=== PATIENT | female | born 1975 | race Hispanic/Latino ===

== ENCOUNTER 2019-01-15 04:33 | Emergency (ER) | payer MEDICAID ==
[2019-01-15 06:47] LABS: ALBUMIN 3.6 g/dL (3.5-5.0); BILIRUBIN,TOTAL 0.3 mg/dL (0.2-1.0); CREATININE 0.8 mg/dL (0.5-1.5); POTASSIUM 3.8 mmol/L (3.5-5.1); TOTAL PROTEIN, SERUM 7.1 g/dL (6.0-8.3)
[2019-01-15 06:48] LABS: B-TYPE NATRIURETIC PEPTIDE 7 pg/mL (0-100)
[2019-01-15 06:53] LABS: INR 0.95 (0.85-1.15)
[2019-01-15 06:58] LABS: BASOPHILS % (AUTO) 0.8 % (0.0-5.0); EOSINOPHILS % (AUTO) 1.5 % (0.0-8.0); HEMATOCRIT 37.1 % (36-48); LYMPHOCYTES % (AUTO) 32.8 % (21.0-51.0); MEAN CORPUSCULAR HEMOGLOBIN 24.4 pg (27.0-33.0); MEAN CORPUSCULAR VOLUME 73.9 fL (79-99); NEUTROPHILS % (AUTO) 54.9 % (40.0-77.0); PLATELET COUNT (AUTO) 220 K/uL (130-400); RED BLOOD CELL COUNT(AUTO) 5.03 MIL/uL (4.00-5.50); RED CELL DISTRIBUTION WIDTH 15.7 % (11.0-15.5); WHITE BLOOD COUNT (AUTO) 10.5 K/uL (4.8-10.8)
== END 2019-01-15 06:57 | disposition home or self-care (01) ==
LOC: EDH 04:33
DX: R07.89 Other chest pain (principal); M62.830 Muscle spasm of back; M54.6 Pain in thoracic spine; I10 Essential (primary) hypertension; F41.9 Anxiety disorder, unspecified
CPT/HCPCS: 36415; 71045; 80053; 83690; 83880; 84484; 85025; 85610; 85730; 93005

== ENCOUNTER 2019-02-08 07:31 | Inpatient (IN) | payer MEDICAID, OTHER ==
[~2019-02-08] VITALS: Ht 162.6 cm; Wt 74.8 kg
[2019-02-08] MEDS ORDERED: ONDANSETRON HCL 4 MG/2 ML VIAL ONE (08:00)
[2019-02-08] MEDS ORDERED: KETOROLAC TROMETHAMINE 30MG/ML ONE (08:00)
[2019-02-08 08:06] LABS: BASOPHILS % (AUTO) 0.7 % (0.0-5.0); EOSINOPHILS % (AUTO) 0.8 % (0.0-8.0); HEMATOCRIT 35.5 % (36-48); MEAN CORPUSCULAR HEMOGLOBIN 23.8 pg (27.0-33.0); MEAN CORPUSCULAR HGB CONC 32.6 g/dL (32.0-36.0); MONOCYTES % (AUTO) 8.7 % (3.0-13.0); NEUTROPHILS % (AUTO) 67.8 % (40.0-77.0); NUCLEATED RED BLOOD CELLS 0.1 % (0.0-0.19); PLATELET COUNT (AUTO) 215 K/uL (130-400); RED BLOOD CELL COUNT(AUTO) 4.87 MIL/uL (4.00-5.50); RED CELL DISTRIBUTION WIDTH 15.9 % (11.0-15.5); WHITE BLOOD COUNT (AUTO) 13.4 K/uL (4.8-10.8)
[2019-02-08 08:51] LABS: CREATININE 0.8 mg/dL (0.5-1.5); POTASSIUM 3.6 mmol/L (3.5-5.1)
[2019-02-08 08:53] LABS: ALBUMIN 3.5 g/dL (3.5-5.0); BILIRUBIN,TOTAL 0.2 mg/dL (0.2-1.0); TOTAL PROTEIN, SERUM 7.3 g/dL (6.0-8.3)
[2019-02-08] MEDS ORDERED: ZOSYN 3.375GM+NS 50ML 50 ML IV ONE (10:35)
[2019-02-08 10:44] LABS: APPEARANCE,URINE Cloudy (CLEAR); BILIRUBIN,URINE Negative (NEGATIVE); COLOR,URINE Yellow (YELLOW); GLUCOSE, URINE (UA) Negative (NEGATIVE); KETONES,URINE Negative (NEGATIVE); LEUKOCYTE ESTERASE ,URINE Negative (NEGATIVE); NITRATE,URINE Negative (NEGATIVE); OCCULT BLOOD,URINE Nonhemolyzed Trace (NEGATIVE); PROTEIN,URINE Negative (NEGATIVE)
[2019-02-08 10:48] LABS: HCG,QUAL RESULT NEGATIVE (NEGATIVE)
[2019-02-08 11:06] LABS: BACTERIA,URINE Few /HPF (None Seen); WBC,URINE 0-1 /HPF (0-1)
[2019-02-08 11:07] LABS: MUCUS,URINE Few LPF (None Seen); SQUAMOUS EPITHELIAL CELL,UR Moderate /HPF (0-2)
[2019-02-08] MEDS ORDERED: MEPERIDINE-PF 25 MG/ML SYG ONE (13:19)
[2019-02-08] MEDS ORDERED: ENOXAPARIN SODIUM 40 MG/0.4 ML SYRINGE SQ SCH (14:45)
[2019-02-08] MEDS ORDERED: PHARMACY COMMUNICATION MISC SCH (14:45)
[2019-02-08] MEDS ORDERED: ACETAMINOPHEN 325 MG TAB PO PRN ×2 (14:45)
[2019-02-08] MEDS ORDERED: ONDANSETRON HCL 4 MG/2 ML VIAL IVP PRN (14:45)
[2019-02-08 18:50] VITALS: BP 130/83
[2019-02-08 19:05] VITALS: BP 132/85
[2019-02-08] MEDS ORDERED: LOSA100T58 PO (19:23)
[2019-02-08] MEDS: FAMOTIDINE 20MG TAB 20 MG TAB PO SCH (20:27)
[2019-02-08] MEDS: DEXTROSE 5 %-0.45 % NACL 1,000 ML IV SCH (21:51)
[2019-02-08 23:05] VITALS: BP 132/92
[2019-02-08] MEDS: MEPERIDINE-PF 25 MG/ML SYG IV PRN (23:12)
[2019-02-08] MEDS: KETOROLAC TROMETHAMINE 30MG/ML IV PRN (23:59)
[2019-02-09 03:15] VITALS: BP 141/90
[2019-02-09] MEDS: MEPERIDINE-PF 25 MG/ML SYG IV PRN ×3 (05:45→21:25)
[2019-02-09 07:24] VITALS: BP 154/99
[2019-02-09 08:22] LABS: HEMATOCRIT 34.7 % (36-48); MEAN CORPUSCULAR HEMOGLOBIN 24.3 pg (27.0-33.0); MEAN CORPUSCULAR VOLUME 73.6 fL (79-99); NUCLEATED RED BLOOD CELLS 0.1 % (0.0-0.19); PLATELET COUNT (AUTO) 221 K/uL (130-400); RED BLOOD CELL COUNT(AUTO) 4.72 MIL/uL (4.00-5.50); WHITE BLOOD COUNT (AUTO) 6.7 K/uL (4.8-10.8)
[2019-02-09 08:32] LABS: CREATININE 0.8 mg/dL (0.5-1.5); POTASSIUM 3.6 mmol/L (3.5-5.1)
[2019-02-09 08:33] LABS: INR 0.98 (0.85-1.15); PARTIAL THROMBOPLASTIN TIME 25.5 SEC (26.3-35.5); PROTHROMBIN TIME 10.3 SEC (9.6-11.6)
[2019-02-09] MEDS: FAMOTIDINE 20MG TAB 20 MG TAB PO SCH (09:00)
[2019-02-09 11:24] VITALS: BP 153/92
--- NOTE | 2019-02-09 13:59 | NUR ---
Rec'd call from Dr. Cabral to clarify if new surgical consult is necessary. Rec'd orders for EGD now if pt NPO and no lovenox given. Upon entering room to get consent, pt stated she had taken "a sip" of water 1 hour ago. Reported to GI lab staff who will clarify what time EGD to be done.
[2019-02-09] MEDS: DEXTROSE 5 %-0.45 % NACL 1,000 ML IV SCH ×3 (14:45→20:34)
[2019-02-09 16:20] VITALS: BP 149/88
--- NOTE | 2019-02-09 16:32 | NUR ---
DCP CM met with pt discussed dc plans. Pt is independent, lives at home with spouse. Denies any equipments/services. Pt feels safe to go back home, still drives, spouse able to assist with transportation and needs as necessary. DC plan to home once stable. CM to cont to follow up. Addendum: 02/09/19 at 1633 by JOSE WHITE LVN CM Amended: Links added.
--- NOTE | 2019-02-09 18:00 | NUR ---
Dr. Amor in for daily rounds with pt. Updated regarding labs and planned EGD that was put on hold due to pt drinking water. Asked for clarification if surgery re-consult was needed. Rec'd orders for HIDA scan in am, stated, "that will tell us if this is a surgical case or not."
--- NOTE | 2019-02-09 19:30 | NUR ---
Spoke with Dr. Cabral to clarify if EGD needed to be rescheduled for am. Rec'd order to cancel procedure altogether, no plans to reschedule.
[2019-02-09 19:54] VITALS: BP 156/97
[2019-02-09] MEDS: FAMOTIDINE/PF 20 MG/2 ML VIAL IV SCH (20:34)
[2019-02-09 23:45] VITALS: BP 158/91
[2019-02-10] MEDS ORDERED: DiphenhydrAMINE HCL 50 MG/ML VIAL IV PRN (01:45)
[2019-02-10] MEDS ORDERED: DiphenhydrAMINE HCL 50 MG/ML VIAL ONE (01:57)
[2019-02-10] MEDS: LIDOCAINE HCL-MPF 1% 2ML VIAL IVP PRN (02:00)
[2019-02-10] MEDS: POTASSIUM CHLORIDE 20MEQ/100ML 100 ML IV PRN (02:01)
[2019-02-10 03:43] VITALS: BP 155/94
[2019-02-10 05:43] LABS: HEMATOCRIT 35.8 % (36-48); MEAN CORPUSCULAR HEMOGLOBIN 23.8 pg (27.0-33.0); MEAN CORPUSCULAR HGB CONC 32.5 g/dL (32.0-36.0); MEAN CORPUSCULAR VOLUME 73.2 fL (79-99); PLATELET COUNT (AUTO) 249 K/uL (130-400); RED BLOOD CELL COUNT(AUTO) 4.89 MIL/uL (4.00-5.50); RED CELL DISTRIBUTION WIDTH 16.3 % (11.0-15.5); WHITE BLOOD COUNT (AUTO) 6.8 K/uL (4.8-10.8)
[2019-02-10] MEDS: DEXTROSE 5 %-0.45 % NACL 1,000 ML IV SCH ×3 (05:56→20:22)
[2019-02-10 06:00] LABS: ALBUMIN 3.2 g/dL (3.5-5.0); BILIRUBIN,TOTAL 3.5 mg/dL (0.2-1.0); CREATININE 0.7 mg/dL (0.5-1.5); POTASSIUM 3.9 mmol/L (3.5-5.1); TOTAL PROTEIN, SERUM 6.8 g/dL (6.0-8.3)
[2019-02-10 07:40] VITALS: BP 148/88
[2019-02-10] MEDS: KETOROLAC TROMETHAMINE 30MG/ML IV PRN ×2 (09:23→18:57)
[2019-02-10] MEDS: FAMOTIDINE/PF 20 MG/2 ML VIAL IV SCH ×2 (09:23→20:21)
[2019-02-10 11:42] VITALS: BP 170/99
--- NOTE | 2019-02-10 12:00 | NUR ---
Notified Dr. Amor that pt insists on surgical consult. Md instructed nurse to wait for HIDA results, then may call if needed.
[2019-02-10] MEDS: MEPERIDINE-PF 25 MG/ML SYG IV PRN ×2 (15:49→20:23)
[2019-02-10 16:39] VITALS: BP 170/96
--- NOTE | 2019-02-10 16:40 | NUR ---
HIDA scan results back, per final report: findings consistent with high grade common duct obstruction, no gall bladder activity or common duct activity identified through 3 hour delay images. reported to Dr. Amor; rec'd order for surgical consult. Notified Dr. Colunga.
[2019-02-10] MEDS ORDERED: BISACODYL 10 MG SUPP.RECT RC PRN (17:45)
[2019-02-10] MEDS ORDERED: HYDRALAZINE HCL 20 MG/ML VIAL IV PRN (17:45)
--- NOTE | 2019-02-10 17:56 | NUR ---
Dr. Colunga in room for initial consult. He states that pt needs ERCP by GI prior to lap manisha. Per his request, Dr. Cabral was notified of HIDA results. Rec's orders from Dr. Cabral to schedule for ERCP to follow his other cases tomorrow afternoon. Orders entered.
[2019-02-10] MEDS ORDERED: HYDRALAZINE HCL 20 MG/ML VIAL ONE (18:03)
[2019-02-10] MEDS: ZOSYN 3.375GM+NS 50ML 50 ML IV SCH (18:50)
[2019-02-10 19:56] VITALS: BP 158/92
[2019-02-10 23:23] VITALS: BP 152/91
[2019-02-11] VITALS (23 sets, daily range): BP systolic 137–183; BP diastolic 74–105
[2019-02-11] MEDS: ZOSYN 3.375GM+NS 50ML 50 ML IV SCH ×2 (01:34→08:39)
[2019-02-11] MEDS: DEXTROSE 5 %-0.45 % NACL 1,000 ML IV SCH ×2 (05:51→20:49)
[2019-02-11 06:10] LABS: HEMATOCRIT 38.3 % (36-48); MEAN CORPUSCULAR HEMOGLOBIN 24.5 pg (27.0-33.0); MEAN CORPUSCULAR HGB CONC 33.2 g/dL (32.0-36.0); MEAN CORPUSCULAR VOLUME 73.9 fL (79-99); PLATELET COUNT (AUTO) 227 K/uL (130-400); RED BLOOD CELL COUNT(AUTO) 5.18 MIL/uL (4.00-5.50); RED CELL DISTRIBUTION WIDTH 16.2 % (11.0-15.5); WHITE BLOOD COUNT (AUTO) 6.8 K/uL (4.8-10.8)
[2019-02-11 06:27] LABS: ALBUMIN 3.4 g/dL (3.5-5.0); BILIRUBIN,TOTAL 4.6 mg/dL (0.2-1.0); CREATININE 0.8 mg/dL (0.5-1.5); POTASSIUM 3.5 mmol/L (3.5-5.1); TOTAL PROTEIN, SERUM 7.4 g/dL (6.0-8.3)
[2019-02-11] MEDS: FAMOTIDINE/PF 20 MG/2 ML VIAL IV SCH ×2 (08:38→20:40)
[2019-02-11] MEDS: KETOROLAC TROMETHAMINE 30MG/ML IV PRN (08:39)
[2019-02-11] MEDS ORDERED: PROPOFOL 1000 MG/100 ML 100 ML IV ONE (14:02)
[2019-02-11] MEDS ORDERED: LIDOCAINE HCL 2% 20ML ONE (14:03)
[2019-02-11] MEDS ORDERED: IOHEXOL-350 50ML VIAL IV ONE (14:39)
[2019-02-11] MEDS ORDERED: MIDAZOLAM HCL 1 MG/ML 2ML VIAL ONE (16:02)
[2019-02-11] MEDS ORDERED: FENTANYL CITRATE PF 50 MCG/1 ML 2ML VIAL ONE (16:03)
[2019-02-11] MEDS ORDERED: INDOMETHACIN 50 MG SUPP.RECT RC SCH (16:15)
[2019-02-11] MEDS ORDERED: GLUCAGON 1MG KIT 1 MG ML ONE (16:18)
--- NOTE | 2019-02-11 18:26 | NUR ---
CHARLIE WHITE NOTIFIED OF PT'S ERCP PROCEDURE OUTCOME NO ORDERS FOR LAP ABBI JUST PREVIOUS ORDERS TO KEEP PT NPO AFTER MIDNIGHT AND LAP ABBI MIGHT HAPPEN TOMORROW OR UNTIL SATURDAY HE STATED HE DISCUSSED MENTION ABOVE WITH PATIENT
[2019-02-11] MEDS: MEPERIDINE-PF 25 MG/ML SYG IV PRN (20:39)
[2019-02-11] MEDS ORDERED: MORPHINE SULFATE 2 MG/ML 1ML SYG ONE (21:40)
--- NOTE | 2019-02-11 21:43 | NUR ---
PAIN C/O PAIN TO ABDOMEN , SEE PAIN ASSESSMENT ANT TREATMENT , NO RESOLVED WITH DEMEROL, HOSPITALIST CALLED PAPITO SIMMONS [employer] FINAL INSPECTOR, INFOMRED OF PATIENTS PAIN NOT RESOLVED WITH ORDERS, MORPHINE 2 MG IVP GIVEN SLOWLY
[2019-02-11] MEDS ORDERED: HYDROMORPHONE 1 MG/1 ML AMP ONE (22:58)
--- NOTE | 2019-02-11 22:59 | NUR ---
ABDOMINAL PAIN ABDOMINAL PAIN NO RESOLVED, CALLED HOSPITALIST GENESIS Rooney TO SEE PATIENT AT BEDSIDE, PER ORDER DILAUDID 1 MG IVP GIVEN SLOWLY
[2019-02-12] VITALS (7 sets, daily range): BP systolic 130–172; BP diastolic 77–93
[2019-02-12 05:47] LABS: HEMATOCRIT 37.9 % (36-48); MEAN CORPUSCULAR HEMOGLOBIN 24.4 pg (27.0-33.0); MEAN CORPUSCULAR HGB CONC 32.4 g/dL (32.0-36.0); MEAN CORPUSCULAR VOLUME 75.2 fL (79-99); PLATELET COUNT (AUTO) 298 K/uL (130-400); RED BLOOD CELL COUNT(AUTO) 5.05 MIL/uL (4.00-5.50); RED CELL DISTRIBUTION WIDTH 16.7 % (11.0-15.5); WHITE BLOOD COUNT (AUTO) 10.8 K/uL (4.8-10.8)
[2019-02-12 06:11] LABS: ALBUMIN 3.6 g/dL (3.5-5.0); BILIRUBIN,TOTAL 5.9 mg/dL (0.2-1.0); CREATININE 0.9 mg/dL (0.5-1.5); POTASSIUM 3.7 mmol/L (3.5-5.1); TOTAL PROTEIN, SERUM 7.7 g/dL (6.0-8.3)
[2019-02-12] MEDS: DEXTROSE 5 %-0.45 % NACL 1,000 ML IV SCH ×2 (06:11→20:01)
[2019-02-12] MEDS: FAMOTIDINE/PF 20 MG/2 ML VIAL IV SCH ×2 (09:50→20:01)
[2019-02-12] MEDS: MEPERIDINE-PF 25 MG/ML SYG IV PRN ×3 (09:51→20:01)
--- NOTE | 2019-02-12 11:00 | NUR ---
PT ARRIVED, DENIES SOB OR CHEST PAIN VITAL SIGNS STABLE RIGHT FEMORAL SITE INTACT AND DRY NO BLEEDING, HEMATOMA NOTED AT BED SIDE WILL CONTINUE TO MONITOR PT BED REST DIRECTED
[2019-02-12] MEDS: MORPHINE SULFATE 2 MG/ML 1ML SYG IVP PRN (15:50)
[2019-02-13] VITALS (22 sets, daily range): BP systolic 109–152; BP diastolic 59–100
[2019-02-13] MEDS: MORPHINE SULFATE 2 MG/ML 1ML SYG IVP PRN ×3 (00:37→19:51)
[2019-02-13 05:28] LABS: HEMATOCRIT 35.3 % (36-48); MEAN CORPUSCULAR HEMOGLOBIN 24.5 pg (27.0-33.0); MEAN CORPUSCULAR HGB CONC 32.8 g/dL (32.0-36.0); MEAN CORPUSCULAR VOLUME 74.7 fL (79-99); PLATELET COUNT (AUTO) 235 K/uL (130-400); RED BLOOD CELL COUNT(AUTO) 4.73 MIL/uL (4.00-5.50); RED CELL DISTRIBUTION WIDTH 16.3 % (11.0-15.5)
[2019-02-13 05:46] LABS: ALBUMIN 3.3 g/dL (3.5-5.0); BILIRUBIN,TOTAL 2.3 mg/dL (0.2-1.0); CREATININE 0.9 mg/dL (0.5-1.5); POTASSIUM 3.2 mmol/L (3.5-5.1)
[2019-02-13] MEDS: POTASSIUM CHLORIDE 20MEQ/100ML 100 ML IV PRN (06:13)
[2019-02-13] MEDS: LIDOCAINE HCL-MPF 1% 2ML VIAL IVP PRN (06:13)
--- NOTE | 2019-02-13 07:50 | NUR ---
Patient awake, alert, oriented and voicing needs well. When asked about her last BM , stated that she had one 2 days ago and that at home she normally takes Mag. Citrate to help with her constipation. Denies abdominal pain or nausea or vomiting at this time. Remains NPO for scheduled surgery. Potassium IV infusing per protocol
[2019-02-13] MEDS ORDERED: BUPIVACAINE/PF 0.5% 30ML VIAL ONE (07:53)
[2019-02-13] MEDS: FAMOTIDINE/PF 20 MG/2 ML VIAL IV SCH ×2 (07:56→19:51)
--- NOTE | 2019-02-13 09:00 | NUR ---
Call Mitchell the OR runner to follow up on time for surgery since pt was told that it was going to be at 0900 and hasn't been picked up yet, but I was told that Dr. Colunga is running late and will most likely be here around noon. Pt was informed of updates.
--- NOTE | 2019-02-13 11:15 | NUR ---
Nutrition Intervention: Nutrition screen based on LOS x 5 days. Pt. admitted with Dx of Acute Choledocholithiasis, acute Cholecystitis. Pt. NPO for Lap Nidia. Pt. previously on clear Liquid diet with <50% p.o. intake, as per pt. Labs reviewed(Alb 3.3, T. bili 2.3, AST/ALT 203/474, Alk Phos 284). LBM: 02/10/19, per pt. SR-21, elastic. BMI: 28.3, overweight. Recommendations: 1) When medially feasible, rec. Clear Liquids and advance as tolerated to Heart Healthy Soft diet. 2) Continue to monitor pt's nutritional status. 3) Consult RD as nutrition concerns arise. Addendum: 02/13/19 at [address] Amended: Links added.
[2019-02-13] MEDS ORDERED: BUPIVACAINE/PF 0.5% 10ML VIAL ONE (13:52)
--- NOTE | 2019-02-13 14:00 | NUR ---
PT TO OR DENIES SOB OR CHEST PAIN
[2019-02-13] MEDS ORDERED: CLINDAMYCIN 600 MG/D5% WATER 50 ML IV ONE (14:50)
[2019-02-13] MEDS ORDERED: LIDOCAINE PF 2% 5ML ABBOJECT ONE (14:52)
[2019-02-13] MEDS ORDERED: GLYCOPYRROLATE 1 MG/5 ML SYRINGE ONE ×2 (14:52→15:30)
[2019-02-13] MEDS ORDERED: DEXAMETHASONE SOD PHOSPHATE 10MG/ML 1ML VIAL ONE (14:52)
[2019-02-13] MEDS ORDERED: SUCCINYLCHOLINE 200MG/10ML SYR ONE (14:52)
[2019-02-13] MEDS ORDERED: ONDANSETRON HCL 4 MG/2 ML VIAL ONE (14:52)
[2019-02-13] MEDS ORDERED: PROPOFOL 10 MG/ML 20ML VIAL IV ONE (14:52)
[2019-02-13] MEDS ORDERED: MIDAZOLAM HCL 1 MG/ML 2ML VIAL ONE (14:53)
[2019-02-13] MEDS ORDERED: ROCURONIUM 10MG/1ML SYR 10 MG/ML ML ONE (14:53)
[2019-02-13] MEDS ORDERED: NEOSTIGMINE 5MG/5ML SYR IV ONE ×2 (14:53→15:30)
[2019-02-13] MEDS ORDERED: FENTANYL CITRATE PF 50 MCG/1 ML 2ML VIAL ONE (14:53)
[2019-02-13] MEDS: CLINDAMYCIN 600 MG/D5% WATER 50 ML IV SCH ×2 (15:15→19:51)
[2019-02-13] MEDS: MEPERIDINE-PF 25 MG/ML SYG IV PRN ×3 (16:07→23:58)
--- NOTE | 2019-02-13 16:45 | NUR ---
Patient return from surgery, 4 bandaids intact to abdomen which is soft but tender on palpation.
[2019-02-13] MEDS: LACTATED RINGERS 1000ML 1,000 ML IV SCH (18:07)
[2019-02-13] MEDS: LUBIPROSTONE 24 MCG CAP PO SCH (19:51)
[2019-02-13] MEDS: DEXTROSE 5 %-0.45 % NACL 1,000 ML IV SCH (19:52)
[2019-02-13] MEDS ORDERED: MORPHINE SULFATE 2 MG/ML 1ML SYG IM SCH (21:00)
[2019-02-14 00:07] VITALS: BP 123/86
[2019-02-14] MEDS: MORPHINE SULFATE 2 MG/ML 1ML SYG IVP PRN ×2 (02:01→16:04)
[2019-02-14] MEDS: CLINDAMYCIN 600 MG/D5% WATER 50 ML IV SCH ×2 (03:35→08:39)
[2019-02-14 04:00] VITALS: BP 127/84
[2019-02-14] MEDS: MEPERIDINE-PF 25 MG/ML SYG IV PRN (05:08)
[2019-02-14] MEDS: LACTATED RINGERS 1000ML 1,000 ML IV SCH (05:10)
[2019-02-14 05:30] LABS: BASOPHILS % (AUTO) 0.5 % (0.0-5.0); EOSINOPHILS % (AUTO) 1.9 % (0.0-8.0); HEMATOCRIT 32.6 % (36-48); MEAN CORPUSCULAR HEMOGLOBIN 23.7 pg (27.0-33.0); MEAN CORPUSCULAR HGB CONC 32.2 g/dL (32.0-36.0); MEAN CORPUSCULAR VOLUME 73.5 fL (79-99); MONOCYTES % (AUTO) 6.4 % (3.0-13.0); NEUTROPHILS % (AUTO) 77.2 % (40.0-77.0); PLATELET COUNT (AUTO) 200 K/uL (130-400); RED BLOOD CELL COUNT(AUTO) 4.44 MIL/uL (4.00-5.50); RED CELL DISTRIBUTION WIDTH 16.4 % (11.0-15.5); WHITE BLOOD COUNT (AUTO) 12.5 K/uL (4.8-10.8)
[2019-02-14 05:45] LABS: BILIRUBIN,TOTAL 1.6 mg/dL (0.2-1.0); CREATININE 0.8 mg/dL (0.5-1.5); POTASSIUM 3.1 mmol/L (3.5-5.1); TOTAL PROTEIN, SERUM 6.4 g/dL (6.0-8.3)
[2019-02-14] MEDS: DEXTROSE 5 %-0.45 % NACL 1,000 ML IV SCH ×2 (06:13→14:45)
[2019-02-14] MEDS ORDERED: POTASSIUM CHLORIDE 20 MEQ ERTAB PO PRN (07:00)
[2019-02-14] MEDS ORDERED: POTASSIUM CHLORIDE 10% ELIXIR 20 MEQ/15 ML UDCUP PO PRN (07:00)
[2019-02-14 08:00] VITALS: BP 128/86
[2019-02-14] MEDS ORDERED: DICYCLOMINE HCL 20 MG TAB PO SCH (08:30)
[2019-02-14] MEDS: LUBIPROSTONE 24 MCG CAP PO SCH ×2 (08:34→16:03)
[2019-02-14] MEDS: FAMOTIDINE/PF 20 MG/2 ML VIAL IV SCH (08:35)
[2019-02-14] MEDS ORDERED: LOSARTAN 100 MG TABLET PO SCH (09:00)
[2019-02-14 11:56] VITALS: BP 126/75
[2019-02-14 15:37] VITALS: BP 130/66
[2019-02-14] MEDS ORDERED: IBUP-2070 PO (17:58)
[2019-02-14] MEDS ORDERED: ACET1TAB12 PO (17:58)
--- NOTE | 2019-02-14 19:08 | NUR ---
DISCHARGE PATIENT GIVEN DISCHARGE INSTRUCTIONS AND EDUCATION, INCLUDING SIDE EFFECTS ON NEW PRESCRIBED MEDICATIONS, DIET AND FOLLOW UP APPOINTMENT PATIENT VERBALIZED UNDERSTANDING OF ALL EDUCATION GIVEN VIA TEACH BACK. NO QUESTIONS OR CONCERNS VOICED. IV DISCONTINUED, CATHETER INTACT. NO SIGNS OF DISTRESS NOTED UPON DISCHARGE. PATIENT LEFT VIA WHEELCHAIR TO PRIVATE CAR. ALL BELONGINGS TAKEN WITH. Addendum: 02/14/19 at 2 by PABLO JOHNSON RN RN Amended: Links added.
== END 2019-02-14 19:15 | disposition home or self-care (01) | DRG 419 ==
LOC: EDH 07:31 → EDHIP 07:32 → 4BH 18:11
PROVIDERS: ADMIT Family Medicine; ATTEND Family Medicine
PROC: 0FC98ZZ Extirpation of Matter from Common Bile Duct, Via Natural or Artificial Opening Endoscopic (ICD-10-PCS; 2019-02-11)
PROC: BF131ZZ Fluoroscopy of Gallbladder and Bile Ducts using Low Osmolar Contrast (ICD-10-PCS; 2019-02-11)
PROC: 0FT44ZZ Resection of Gallbladder, Percutaneous Endoscopic Approach (ICD-10-PCS; principal; 2019-02-13 15:13)
DX: K80.63 Calculus of gallbladder and bile duct with acute cholecystitis with obstruction (principal); K83.8 Other specified diseases of biliary tract; E11.9 Type 2 diabetes mellitus without complications; I25.10 Atherosclerotic heart disease of native coronary artery without angina pectoris; D50.9 Iron deficiency anemia, unspecified; F41.9 Anxiety disorder, unspecified; I10 Essential (primary) hypertension; Z83.3 Family history of diabetes mellitus; Z82.49 Family history of ischemic heart disease and other diseases of the circulatory system
CPT/HCPCS: 36415; 43262; 43264; 74330; 76705; 78227; 80048; 80053; 81001; 81025; 82150; 83690; 85025; 85027; 85610; 85730; 93005; A9537; C1769; C1773; G0378; J0330; J0360; J1100; J1170; J1200; J1610; J1885; J2001; J2175; J2250; J2405; J2543; J2704; J2710; J3010; J3480; J3490; J7030; J7042; J7120; Q9967

== ENCOUNTER 2019-06-01 06:38 | Emergency (ER) | payer OTHER ==
[~2019-06-01 06:38] MED LIST: ACET1TAB12 PO; IBUP-2070 PO; LOSA100T58 PO
[2019-06-01] MEDS ORDERED: ASPIRIN 325 MG TABLET ONE (07:23)
[2019-06-01] MEDS ORDERED: LOSARTAN 50 MG TABLET ONE (07:32)
[2019-06-01 07:40] LABS: BASOPHILS % (AUTO) 0.7 % (0.0-5.0); EOSINOPHILS % (AUTO) 1.7 % (0.0-8.0); HEMATOCRIT 35.5 % (36-48); LYMPHOCYTES % (AUTO) 28.4 % (21.0-51.0); MEAN CORPUSCULAR HEMOGLOBIN 22.3 pg (27.0-33.0); MEAN CORPUSCULAR HGB CONC 32.1 g/dL (32.0-36.0); MEAN CORPUSCULAR VOLUME 69.4 fL (79-99); MONOCYTES % (AUTO) 11.6 % (3.0-13.0); NEUTROPHILS % (AUTO) 57.6 % (40.0-77.0); PLATELET COUNT (AUTO) 174 K/uL (130-400); RED BLOOD CELL COUNT(AUTO) 5.11 MIL/uL (4.00-5.50); RED CELL DISTRIBUTION WIDTH 18.7 % (11.0-15.5); WHITE BLOOD COUNT (AUTO) 9.4 K/uL (4.8-10.8)
[2019-06-01 07:45] LABS: CREATININE 0.7 mg/dL (0.5-1.5); POTASSIUM 3.9 mmol/L (3.5-5.1)
[2019-06-01 07:51] LABS: ALBUMIN 3.5 g/dL (3.5-5.0); BILIRUBIN,TOTAL 0.3 mg/dL (0.2-1.0); TOTAL PROTEIN, SERUM 7.2 g/dL (6.0-8.3)
[2019-06-01 08:04] LABS: APPEARANCE,URINE Clear (CLEAR); BILIRUBIN,URINE Negative (NEGATIVE); COLOR,URINE Yellow (YELLOW); GLUCOSE, URINE (UA) Negative (NEGATIVE); KETONES,URINE Negative (NEGATIVE); LEUKOCYTE ESTERASE ,URINE Negative (NEGATIVE); NITRATE,URINE Negative (NEGATIVE); OCCULT BLOOD,URINE Trace (NEGATIVE); PROTEIN,URINE Negative (NEGATIVE); UROBILINOGEN,URINE 0.2 mg/dL (0.2-1.0)
[2019-06-01] MEDS ORDERED: PROCHLORPERAZINE EDISYLATE 10 MG/2 ML VIAL ONE (08:05)
[2019-06-01 08:11] LABS: AMPHET/METH SCREEN,URINE NEGATIVE (NEGATIVE); BARBITURATE SCREEN, URINE NEGATIVE (NEGATIVE); BENZODIAZEPINES SCREEN,URINE NEGATIVE (NEGATIVE); CANNABINOID SCREEN,URINE NEGATIVE (NEGATIVE); COCAINE SCREEN,URINE NEGATIVE (NEGATIVE); OPIATE SCREEN,URINE NEGATIVE (NEGATIVE); PHENCYCLIDINE SCREEN,URINE NEGATIVE (NEGATIVE)
[2019-06-01 08:21] LABS: B-TYPE NATRIURETIC PEPTIDE 17 pg/mL (0-100)
[2019-06-01 08:22] LABS: BACTERIA,URINE Rare /HPF (None Seen); RBC,URINE 0-1 /HPF (0-1); SQUAMOUS EPITHELIAL CELL,UR Rare /HPF (0-2); WBC,URINE 0-1 /HPF (0-1)
== END 2019-06-01 12:03 | disposition home or self-care (01) ==
LOC: EDH 06:38
DX: R07.89 Other chest pain (principal); R11.0 Nausea; R20.0 Anesthesia of skin; F41.9 Anxiety disorder, unspecified; I10 Essential (primary) hypertension; Z79.899 Other long term (current) drug therapy
CPT/HCPCS: 36415; 71045; 80053; 80305; 81001; 82550; 83880; 84484 ×2; 85025; 93005 ×2; 96374; 99285; J0780

== ENCOUNTER 2021-05-11 01:58 | Emergency (ER) | payer MEDICAID ==
[~2021-05-11] VITALS: Ht 162.6 cm; Wt 74.8 kg
[2021-05-11 02:00] VITALS: BP 162/96
== END 2021-05-11 05:06 | disposition left against medical advice (07) ==
LOC: EDH 01:58
DX: R42 Dizziness and giddiness (principal); R51.9 Headache, unspecified; Z53.21 Procedure and treatment not carried out due to patient leaving prior to being seen by health care provider

== ENCOUNTER 2023-07-17 16:23 | Emergency (ER) | payer MEDICAID ==
[~2023-07-17] VITALS: Ht 162.6 cm; Wt 74.4 kg
[~2023-07-17 16:23] MED LIST changes: -LOSA100T58 PO; +LOSA100T59 PO; +OMEP20TA2 PO
[2023-07-17 17:03] LABS: BASOPHILS # (AUTO) 0.14 K/uL (0.00-0.20); EOSINOPHILS # (AUTO) 0.22 K/uL (0.00-0.70); EOSINOPHILS % (AUTO) 1.5 % (0.0-8.0); HEMATOCRIT 33.5 % (36-48); IMMATURE GRANULOCYTE ABSOLUTE 0.08 K/uL (0-1); LYMPHOCYTES # (AUTO) 4.3 K/uL (1.0-4.8); LYMPHOCYTES % (AUTO) 29.7 % (21.0-51.0); MEAN CORPUSCULAR HEMOGLOBIN 18.4 pg (27.0-33.0); MEAN CORPUSCULAR HGB CONC 28.7 g/dL (32.0-36.0); MEAN CORPUSCULAR VOLUME 64.2 fL (79-99); MONOCYTES # (AUTO) 1.4 K/uL (0.1-1.0); NEUTROPHILS # (AUTO) 8.2 K/uL (1.8-7.7); NEUTROPHILS % (AUTO) 57.2 % (40.0-77.0); PLATELET COUNT (AUTO) 271 K/uL (130-400); RED BLOOD CELL COUNT(AUTO) 5.22 MIL/uL (4.00-5.50); RED CELL DISTRIBUTION WIDTH 21.7 % (11.0-15.5); WHITE BLOOD COUNT (AUTO) 14.3 K/uL (4.8-10.8)
[2023-07-17 17:18] LABS: CREATININE 0.9 mg/dL (0.5-1.5); POTASSIUM 3.8 mmol/L (3.5-5.1)
[2023-07-17 17:23] LABS: ALBUMIN 3.5 g/dL (3.5-5.0); BILIRUBIN,TOTAL 0.2 mg/dL (0.2-1.0); TOTAL PROTEIN, SERUM 7.6 g/dL (6.0-8.3)
[2023-07-17 18:45] LABS: APPEARANCE,URINE CLEAR (CLEAR); BILIRUBIN,URINE NEGATIVE (NEGATIVE); COLOR,URINE YELLOW (YELLOW); GLUCOSE, URINE (UA) NEGATIVE (NEGATIVE); KETONES,URINE NEGATIVE (NEGATIVE); LEUKOCYTE ESTERASE ,URINE NEGATIVE Leu/uL (NEGATIVE); NITRATE,URINE NEGATIVE (NEGATIVE); PROTEIN,URINE 10 mg/dL (NEGATIVE); UROBILINOGEN,URINE 0.2 mg/dL (0.2-1.0)
[2023-07-17 18:47] LABS: HCG,QUALITATIVE URINE NEGATIVE (NEGATIVE)
[2023-07-17 18:48] LABS: ADD UA MICROSCOPIC YES
[2023-07-17 18:51] LABS: BACTERIA,URINE RARE /HPF (None Seen); MUCUS,URINE RARE LPF (None Seen); SQUAMOUS EPITHELIAL CELL,UR FEW /HPF (0-2)
[2023-07-17 19:23] VITALS: BP 159/88; PULSE 90; RESP 18; O2SAT 99
[2023-07-17] MEDS ORDERED: IBUP-1493 PO (21:56)
== END 2023-07-17 22:17 | disposition home or self-care (01) ==
LOC: EDH 16:23
DX: N83.202 Unspecified ovarian cyst, left side (principal); I10 Essential (primary) hypertension
CPT/HCPCS: 36415; 74176; 76856; 80053; 81001; 81025; 83690; 85025